=== PATIENT | female | born 1945 | race African-American/Black ===

== ENCOUNTER 2017-10-03 14:08 | Emergency (ER) | payer MEDICARE ==
[~2017-10-03] VITALS: Ht 160 cm; Wt 79.5 kg
[~2017-10-03 14:08] MED LIST: DARV PO; EXEN10PE SQ; GLUC5TAB3 PO; LEVO.1 PO; ZOVI800T13 PO
[2017-10-03 14:15] VITALS: BP 180/72; PULSE 91; RESP 18; TEMP 98.1; O2SAT 100
[2017-10-03] MEDS ORDERED: NOVONP2 SQ ×2 (15:56)
[2017-10-03] MEDS ORDERED: LEVO75TA3 PO (15:56)
[2017-10-03] MEDS ORDERED: METF500T PO (15:56)
[2017-10-03] MEDS ORDERED: GLIM4TAB PO (15:56)
[2017-10-03] MEDS ORDERED: ATOR10TA15 PO (15:57)
[2017-10-03] MEDS ORDERED: ORPHENADRINE INJ 60 MG/2 ML AMP IM ONE (16:15)
[2017-10-03] MEDS ORDERED: KETOROLAC TROMETHAMINE 60 MG/2 ML (IM) VIAL IM ONE (16:15)
--- NOTE | 2017-10-03 16:15 | PD ---
HPI Chief Complaint: Injury Time Seen by Provider: 15:59 Travel History International Travel<30 days: No Contact w/Intl Traveler<30days: No Traveled to known affect area: No History of Present Illness HPI 71 year old female presents to the emergency department for evaluation of left hip pain that radiates down the left leg and left knee pain that started after a slip and fall on 08/21/17. She states she works at [employer] and slipped on a menu , falling, and landing on her left hip. She states she saw her primary care provider after and he told her she had a contusion. She states she did not have x-rays done. She states the pain is 10/10, aching. Exacerbating factors are movement, ambulation. No alleviating factors. Patient denies any head injury or LOC. No neck or back pain. No abdominal pain, nausea, vomiting, diarrhea. Patient does report history of sciatica as well. Mild severity. PFSH Past Medical History High Cholesterol: Yes Diabetes: Yes Patient Takes Glucophage: Yes Diminished Hearing: No Menopausal: Yes Past Surgical History Cholecystectomy: Yes Hysterectomy: Yes Tonsillectomy: Yes Social History Alcohol Use: No Tobacco Use: No Substance Use: No Allergies-Medications (Allergen,Severity, Reaction): Coded Allergies: No Known Allergies (Verified Allergy, Mild, 11/28/07) Reported Meds & Prescriptions Reported Meds & Active Scripts Active Reported Atorvastatin (Atorvastatin Calcium) 10 Mg Tab 10 Mg PO HS Glimepiride 4 Mg Tab 8 Mg PO BIDAC Levothyroxine (Levothyroxine Sodium) 75 Mcg Tab 75 Mcg PO DAILY Novolin N Inj (Insulin Human NPH) 1,000 Unit/10 Ml Vial 20 Units SQ HS Novolin N Inj (Insulin Human NPH) 1,000 Unit/10 Ml Vial 28 Units SQ AM Metformin (Metformin HCl) 500 Mg Tab 1,000 Mg PO BIDPC Review of Systems Except as stated in HPI: all other systems reviewed are Neg Physical Exam Narrative GENERAL: Well developed, well nourished female patient, afebrile. SKIN: Warm and dry. HEAD: Normocephalic. Atraumatic. EYES: No scleral icterus. No injection or drainage. NECK: Supple, trachea midline. No JVD or lymphadenopathy. CARDIOVASCULAR: Regular rate and rhythm without murmurs, gallops, or rubs. RESPIRATORY: Breath sounds equal bilaterally. No accessory muscle use. Lung sounds are clear to auscultation. GASTROINTESTINAL: Abdomen soft, non-tender, nondistended. MUSCULOSKELETAL: No cyanosis, or edema. Patient has tenderness over left lateral hip and left anterior knee. BACK: Nontender without obvious deformity. No CVA tenderness. No midline spinal tenderness. Data Data Last Documented VS Vital Signs Date Time Temp Pulse Resp B/P (MAP) Pulse Ox O2 Delivery O2 Flow Rate FiO2 10/03/17 14:15 98.1 91 18 180/72 (108) 100 Orders Orders Hip, Uni(Ap&Lat) W Ap Pelvis (10/03/17 ) Femur (Ap & Lat/2vws) (10/03/17 ) Ketorolac Inj (Toradol Inj) (10/03/17 16:15) Orphenadrine Inj (Norflex Inj) (10/03/17 16:15) MDM Medical Decision Making Medical Screen Exam Complete: Yes Emergency Medical Condition: Yes Medical Record Reviewed: Yes Interpretation(s) Last Impressions Hip and Pelvis X-Ray 10/03/17 0000 Signed Impressions: Service Date/Time: Tuesday, October 03, 2017 16:16 - CONCLUSION: Intact left hip. Naveed Neely MD Femur X-Ray 10/03/17 0000 Signed Impressions: Service Date/Time: Tuesday, October 03, 2017 16:18 - CONCLUSION: Intact left femur. Naveed Neely MD Differential Diagnosis sciatica vs. contusion. vs. fracture Narrative Course 71 year old female presents to the emergency department for evaluation of left hip and knee pain after a fall in July. X-ray of the left hip with pelvis and left femur are ordered and pending. Patient is given Toradol 60 mg IM and Norflex 60 mg IM for pain. X-ray of the left hip with pelvis shows no acute abnormality. X-ray of the left femur shows intact femur. Patient is to continue Aleve as needed for pain. She will be given short term prescription for Robaxin. Patient is instructed to follow up with her primary care physician. She verbalizes agreement and understanding. She is to return for any acute, worsening of symptoms. Diagnosis Primary Impression: Sciatica Qualified Codes: M54.32 - Sciatica, left side Additional Impression: Contusion of left hip Qualified Codes: S70.02XA - Contusion of left hip, initial encounter Referrals: Primary Care Physician call for appointment Patient Instructions: Contusion in Adults (ED), General Instructions, Sciatica (ED) Additional Instructions: Take Robaxin as directed as needed. Continue Aleve as needed for pain. Heating pad on low for 20 mins 4 times daily. Follow up with your primary care physician. Return to the emergency department for any acute, worsening of symptoms. Med/Other Pt SpecificInfo: Prescription(s) given Scripts Methocarbamol (Robaxin) 500 Mg Tab 500 MG PO TID Y for MUSCLE SPASM, #21 TAB 0 Refills Prov: Thuy Moran 10/03/17 Disposition: 01 DISCHARGE HOME Condition: Stable Thuy Moran Oct 03, 2017 16:15
--- NOTE | 2017-10-03 16:29 | RADRPT ---
EXAM DATE/TIME: 10/03/2017 16:16 [facility] COMPARISON: No previous studies available for comparison. INDICATIONS : Left hip pain, fell MEDICAL HISTORY : SURGICAL HISTORY : None. ENCOUNTER: Initial ACUITY: 2 weeks PAIN SCORE: 4/10 LOCATION: Left Hip FINDINGS: Examination of the left hip was performed with AP Pelvis. The primary and secondary trabecular patte rn of the femoral neck is intact. The hip joint is of normal width without significant sclerosis or bony hypertrophy. The acetabulum is grossly intact. CONCLUSION: Intact left hip. Naveed Neely MD on October 03, 2017 at 16:25 Board Certified Radiologist. This report was verified electronically.
--- NOTE | 2017-10-03 16:31 | RADRPT ---
EXAM DATE/TIME: 10/03/2017 16:18 [facility] COMPARISON: No previous studies available for comparison. INDICATIONS : Left femur pain, fell MEDICAL HISTORY : None. SURGICAL HISTORY : None. ENCOUNTER: Initial ACUITY: 2 weeks PAIN SCORE: 4/10 LOCATION: Left Femur FINDINGS: Two view examination of the left femur demonstrates no evidence of fracture or dislocation. Bony min eralization is normal. The soft tissue structures are intact. CONCLUSION: Intact left femur. Naveed Neely MD on October 03, 2017 at 16:29 Board Certified Radiologist. This report was verified electronically.
[2017-10-03] MEDS ORDERED: ROBA500T PO (16:51)
== END 2017-10-03 17:06 | disposition home or self-care (01) ==
LOC: NEPC 14:08
DX: M54.32 Sciatica, left side (principal); S70.02XA Contusion of left hip, initial encounter; E11.9 Type 2 diabetes mellitus without complications; E78.00 Pure hypercholesterolemia, unspecified; W01.0XXA Fall on same level from slipping, tripping and stumbling without subsequent striking against object, initial encounter; Z79.4 Long term (current) use of insulin
CPT/HCPCS: 73502; 73552; 96372; 99283; J1885; J2360